=== PATIENT | male | born 1975 | race African-American/Black ===

== ENCOUNTER 2017-06-17 12:04 | Emergency (ER) | payer MEDICARE ==
[~2017-06-17] VITALS: Ht 188 cm; Wt 102.7 kg
[~2017-06-17 12:04] MED LIST: IMITREX50 MG PO; INDERAL40 MG PO; PROTONIX 40MG T40 MG PO; TOPAMAX50 MG PO; ZOFRAN ODT4 MG PO; ZOLOFT 50MG50 MG PO
[2017-06-17 12:15] VITALS: BP 142/89; TEMP 99.3
[2017-06-17 13:22] VITALS: PULSE 90
== END 2017-06-17 13:23 | disposition home or self-care (01) ==
LOC: COL.ER 12:04
DX: J11.1 Influenza due to unidentified influenza virus with other respiratory manifestations (principal); F41.9 Anxiety disorder, unspecified

== ENCOUNTER 2018-04-13 19:13 | Emergency (ER) | payer MEDICARE ==
[~2018-04-13] VITALS: Ht 188 cm; Wt 104.5 kg
[2018-04-13 19:16] VITALS: TEMP 97.5
[2018-04-13 21:07] VITALS: BP 136/88; PULSE 74
== END 2018-04-13 21:08 | disposition home or self-care (01) ==
LOC: COL.ER 19:13
DX: G43.909 Migraine, unspecified, not intractable, without status migrainosus (principal)
CPT/HCPCS: J1200; J1885; J2765

== ENCOUNTER 2018-04-20 11:33 | Emergency (ER) | payer MEDICARE ==
[~2018-04-20] VITALS: Ht 188 cm; Wt 104.5 kg
[2018-04-20 11:39] VITALS: TEMP 97.1
[2018-04-20] MEDS ORDERED: TYLENOL 325MG325 MG PO (12:20)
[2018-04-20] MEDS ORDERED: ADVIL200 MG PO (12:21)
[2018-04-20 13:14] LABS: BASO % 0.1 % (0.0-2.0); EOS % 0.4 % (0-4.0); GRAN # 6.3 (1.4-6.5); HEMOGLOBIN 15.4 g/dl (13.5-18.0); LYMPH # 1.3 (1.2-3.4); LYMPH % 15.9 % (20.0-51.0); MEAN CELL VOLUME 83 fl (80.0-100.0); MEAN CORPUSCULAR HEMOGLOBIN 30 pg (27.0-31.0); MEAN CORPUSCULAR HGB CONC 36 g/dl (33.0-37.0); MEAN PLATELET VOLUME 10.5 fl (7.4-10.4); MONO # 0.4 (0.1-0.6); MONO % 5.1 % (1.7-9.3); PLATELET COUNT 169 K/mm3 (130-400); RED BLOOD COUNT 5.18 M/mm3 (4.20-5.60); REDCELL DISTRIBUTION WIDTH-CV 12.7 % (11.5-14.5)
[2018-04-20 13:25] LABS: ALBUMIN 4.2 gm/dL (3.5-5.0); BILIRUBIN,TOTAL 0.6 mg/dL (0.0-1.0); CALCIUM 9.1 mg/dL (8.4-10.2); CREATININE, serum 0.92 mg/dL (0.66-1.25); POTASSIUM 3.7 mmol/L (3.4-5.0); TOTAL PROTEIN 7.9 gm/dL (6.4-8.2)
[2018-04-20] MEDS ORDERED: FIORINAL 325 MG1 CAP PO (15:06)
[2018-04-20] MEDS ORDERED: ZOFRAN 4MG T4 MG/TAB PO (15:06)
[2018-04-20 15:15] VITALS: BP 130/68; PULSE 70
== END 2018-04-20 15:16 | disposition home or self-care (01) ==
LOC: COL.ER 11:33
PROVIDERS: Physician Assistant
DX: G43.909 Migraine, unspecified, not intractable, without status migrainosus (principal); R11.10 Vomiting, unspecified
CPT/HCPCS: J1200; J1885; J2765; J7030

== ENCOUNTER 2021-09-05 15:16 | Emergency (ER) | payer MEDICARE ==
[~2021-09-05] VITALS: Ht 185.4 cm; Wt 104.5 kg
[~2021-09-05 15:16] MED LIST changes: +ADVIL200 MG PO; +FIORINAL 325 MG1 CAP PO; +TYLENOL 325MG325 MG PO; +ZOFRAN 4MG T4 MG/TAB PO
[2021-09-05 15:24] VITALS: TEMP 98.1
[2021-09-05 16:18] LABS: BASO % 0.6 % (0.0-2.0); EOS # 0.1 K/mm3 (0.0-0.7); EOS % 2.2 % (0.0-4.0); GRAN # 2.6 K/mm3 (1.4-6.5); GRAN % 51.8 % (42.2-75.2); HEMOGLOBIN 15.4 g/dl (13.5-18.0); LYMPH # 1.6 K/mm3 (1.2-3.4); LYMPH % 31.8 % (20.0-51.0); MEAN CELL VOLUME 85 fl (80.0-100.0); MEAN CORPUSCULAR HEMOGLOBIN 30 pg (27-31); MEAN CORPUSCULAR HGB CONC 35 g/dl (33.0-37.0); MEAN PLATELET VOLUME 10.4 fl (7.4-10.4); MONO # 0.7 K/mm3 (0.1-0.6); MONO % 13.2 % (1.7-9.3); PLATELET COUNT 185 K/mm3 (130-400); REDCELL DISTRIBUTION WIDTH-CV 12.6 % (11.5-14.5)
[2021-09-05 16:21] LABS: COLLECTION METHOD CLEAN CATCH
[2021-09-05 16:29] LABS: MUCOUS Present (NOT PRESENT); PH 5 (5-8); URINE APPEARANCE Cloudy (CLEAR/HAZY); URINE BACTERIA None Seen /hpf (NONE SEEN); URINE BILIRUBIN Negative (NEGATIVE); URINE BLOOD Negative (NEGATIVE); URINE COLOR Yellow (YELLOW); URINE GLUCOSE Negative (NEGATIVE); URINE KETONE Trace (NEGATIVE); URINE LEUKOCYTE ESTERASE 2+ (NEGATIVE); URINE NITRATE Negative (NEGATIVE); URINE PROTEIN(semi-quant) 1+ (NEGATIVE); URINE UROBILINOGEN Negative (NEGATIVE)
[2021-09-05 16:38] LABS: ALANINE AMINOTRANSFERASE 34 U/L (0-55); ALBUMIN 4.2 gm/dL (3.5-5.0); ALKALINE PHOSPHATASE 57 U/L (40-150); ANION GAP 9 mmol/L (7-16); AST,SGOT 25 U/L (5-34); BILIRUBIN,TOTAL 1.1 mg/dL (0.2-1.2); BLOOD UREA NITROGEN 9 mg/dL (9-21); CALCIUM 9.1 mg/dL (8.4-10.2); CARBON DIOXIDE 25 mmol/L (22-29); CHLORIDE 105 mmol/L (98-107); CREATININE, serum 1.31 mg/dL (0.72-1.25); GLUCOSE 92 mg/dL (70-99); LIPASE 14 U/L (8-78); POTASSIUM 4.1 mmol/L (3.5-4.5); SODIUM 139 mmol/L (136-145); TOTAL PROTEIN 7.6 gm/dL (6.2-8.1)
[2021-09-05 16:46] LABS: TROPONIN-I < 0.010 ng/mL (0.00-0.033)
[2021-09-05 17:06] VITALS: BP 127/80; PULSE 87
[2021-09-07] MEDS ORDERED: BACTRIM DS 8001 TAB PO (07:33)
== END 2021-09-05 17:07 | disposition home or self-care (01) ==
LOC: COL.ER 15:16
PROVIDERS: Nurse Practitioner Primary Care
DX: J06.9 Acute upper respiratory infection, unspecified (principal); Z20.822 Contact with and (suspected) exposure to COVID-19; Z28.311 Partially vaccinated for COVID-19